=== PATIENT | male | born 1975 | race African-American/Black ===

== ENCOUNTER 2020-04-08 01:31 | Emergency (ER) | payer OTHER ==
[~2020-04-08] VITALS: Ht 172.7 cm; Wt 106.6 kg
[~2020-04-08 01:31] MED LIST: CATAPRES0.1 MG PO; HYDROCODON-ACE1 EAC7 PO; LISINOPRIL10 MG PO; MS CONTIN 30 MG30 M1; NORCO 5-325 TA1 EACH PO; NORVASC5 MG PO; PRILOSEC 20 MG20 MG PO; ZANTAC 150MG T150 M1 PO
[2020-04-08 02:15] LABS: CALCIUM 9.5 mg/dL (8.5-10.1); CREATININE 1.3 mg/dL (0.7-1.3)
[2020-04-08 02:16] LABS: ABSOLUTE NEUTROPHILS 6.1 thou/uL (1.4-8.2); BASOPHILS 0.4 % (0.0-2.0); EOSINOPHILS 0.3 % (0.0-3.0); HEMATOCRIT 41.4 % (42.0-52.0); HEMOGLOBIN 13.8 gm/dL (14.0-18.0); LYMPHOCYTES 23.5 % (24.0-44.0); MCH 29.6 pg (26.0-34.0); MCHC 33.3 g/dL (28.0-37.0); MCV 88.7 fL (80.0-100.0); MONOCYTES 7.8 % (1.0-8.0); PLATELET COUNT 263 thou/uL (150-400); RBC 4.66 mil/uL (4.50-6.00); RDW 12.8 % (10.5-14.5); WBC 8.9 thou/uL (4.0-11.0)
[2020-04-08] MEDS ORDERED: LISINOPRIL-HCT1 EAC1 PO (02:16)
[2020-04-08 02:23] LABS: ALBUMIN 3.9 g/dL (3.4-5.0); TOTAL BILIRUBIN 0.6 mg/dL (0.2-1.0)
[2020-04-08 03:31] VITALS: BP 161/91
--- NOTE | 2020-04-09 07:49 | EKG ---
[facility] [address] ELECTROCARDIOGRAM REPORT Name: ALEXANDRO DUQUE Room #: [facility].#: [id number] Admission: 04/08/20 Attend Phys: Discharge: 04/08/20 Date of : 71 Report #: [id number] THIS REPORT FOR: cc: HERIBERTO - Aishwarya family physician/PCP HERIBERTO - Aishwarya family physician/PCP Julian Clarke MD [facility] ~ THIS REPORT FOR: //name// [facility] ED Test Date: 2020-04-08 Test Time: 02:07:11 Pat Name: ALEXANDRO DUQUE Department: Room: Gender: [employer]: WENDY : 1975 Requested By: Gasper Thompson Order Number: [id number] MD: Julian Clarke Measurements Intervals [employer] Rate: 64 P: 21 NM: 195 QRS: 24 QRSD: 102 T: 15 QT: 448 QTc: 463 Interpretive Statements Sinus rhythm No significant abnormality Baseline wander in lead(s) V1 No previous ECG available for comparison Electronically Signed On 04-09-2020 7:49:48 ACCOUNT LIAISON by Julian Clarke [email or web address] <ELECTRONICALLY SIGNED> By: Julian Clarke MD, FAC 04/09/20 0749 6 Julian Clarke MD, [facility] /EPI
== END 2020-04-08 03:32 | disposition home or self-care (01) ==
LOC: ER 01:31
PROVIDERS: Emergency Medicine
DX: K29.70 Gastritis, unspecified, without bleeding (principal); I10 Essential (primary) hypertension; Z79.899 Other long term (current) drug therapy